=== PATIENT | female | born 1975 | race Caucasian/White ===

== ENCOUNTER 2020-04-01 14:45 | Emergency (ER) | payer OTHER, SELFPAY ==
[2020-04-01 14:48] VITALS: BP 192/93; PULSE 87; RESP 18; TEMP 36.4; O2SAT 98; BMI 45.5
[2020-04-01 15:52] LABS: Add Manual Diff / Slide Review NO; Basophils Absolute Auto 100 /uL (0-100); Basophils Percent Auto 1.3 % (0-2); Eosinophils Absolute Auto 400 /uL (0-450); Eosinophils Percent Auto 4.4 % (2-4); Hematocrit 41.7 % (36-46); Hemoglobin 13.9 g/dL (12.0-16.0); Lymphocytes Absolute Auto 3000 /uL (1100-4500); Lymphocytes Percent Auto 31.6 % (25-40); Mean Corpuscular HGB Conc 33.3 % (30-36); Mean Corpuscular Hemoglobin 25.5 PG (26-34); Mean Corpuscular Volume 76.5 fL (80-100); Monocytes Absolute Auto 700 /uL (0-900); Neutrophils Absolute Auto 5400 /uL (1500-7000); Neutrophils Percent Auto 55.7 % (50-75); Platelet Count 259 X10^3/uL (150-400); Red Blood Cell Count 5.45 X10^6/uL (4.0-5.2); Red Cell Distribution Width 15.3 % (11.6-14.8); White Blood Cell Count 9.6 X10^3/uL (4.5-11.0)
--- NOTE | 2020-04-01 15:58 | DI.CT.S_ITS ---
PROCEDURE: CT SOFT TISSUE NECK W CON INDICATIONS: possible retrophrangeal abscess TECHNIQUE: After the administration of intravenous contrast, 3.0 mm axial sections acquired from the sella to the aortic arch. Additional oblique axial 3.0 mm sections acquired through the pharynx. 3 mm thick coronal and sagittal reformats were generated. For radiation dose reduction, the following was used: automated exposure control. COMPARISON: [facility], MR, BRAIN (PITUITARY) W&WO CONTRAS, 02/18/2017, 10:03Partially empty sella. FINDINGS: Image quality: Excellent. Lymph nodes: Prominent but not threshold enlarged bilateral upper cervical lymph nodes in the anterior stations. No threshold cervical or supraclavicular lymphadenopathy. Vessels: Visualized vasculature appears patent. Neck spaces: There is no fluid collection in the retropharyngeal or parapharyngeal soft tissues. No significant edematous or inflammatory changes are visualized in the neck spaces. The oropharynx, nasopharynx, and pharynx demonstrate no mucosal lesions. The vocal cords, false vocal cords, pyriform sinuses, epiglottis, vallecula, and tongue base all appear normal. Extramucosal spaces appear unremarkable. Glands: The parotid and submandibular glands appear normal. Thyroid gland is enlarged and multinodular. Miscellaneous: Marked enlargement of the sella turcica with peripheral eyes per 2 Vickie parenchyma similar to the 02/18/2017 MRI. Limited intracranial views are otherwise within normal limits. No gross orbital abnormality. Predominantly clear paranasal sinuses and mastoid air cells. Bones: No suspicious bony lesions. Visualized sinuses and mastoids appear unremarkable. IMPRESSION: No retropharyngeal or parapharyngeal abscess. No significant inflammatory or infectious findings in the suprahyoid neck. No acute finding otherwise. Dictated by: Olegario Salazar M.D. on 04/01/2020 at 16:34 Approved by: Olegario Salazar M.D. on 04/01/2020 at 16:38
[2020-04-01 16:05] LABS: Lactate (Lactic Acid) 2.9 mmol/L (0.7-2.1)
[2020-04-01 16:06] LABS: Alanine Aminotransferase 29 IU/L (<35); Albumin 4.4 g/dL (3.5-5.0); Albumin Globulin Ratio 1.3 (1.0-2.8); Alkaline Phosphatase 116 U/L (38-126); Aspartate Aminotransferase 25 IU/L (14-36); BUN Creatinine Ratio 14.7 (6-22); Bilirubin Total 0.4 mg/dL (0.2-1.3); Blood Urea Nitrogen 10 mg/dL (7-17); Calcium 9.8 mg/dL (8.4-10.2); Carbon Dioxide 30 mmol/L (22-32); Chloride 99 mmol/L (98-107); Estimated Glomerular Filt Rate > 60.0 mL/min (>60); Globulin 3.4 g/dL (1.7-4.1); Glucose 120 mg/dL (70-100); HEMOLYSIS < 15 (0-50); Potassium 4.1 mmol/L (3.4-5.1); Sodium 139 mmol/L (137-145); Total Protein 7.8 g/dL (6.3-8.2)
[2020-04-01 17:36] VITALS: BP 162/96
[2020-04-01 17:37] VITALS: PULSE 86; O2SAT 97
[2020-04-01 17:44] LABS: Reflexed Lactate in 2 Hours Y
--- NOTE | 2020-04-01 18:01 | ED_ITS ---
HPI - Recheck/Abnormal Lab/Rx General Chief Complaint: Recheck/Abnormal Lab/Rx Stated Complaint: abnormal throat culture results/infetion Time Seen by Provider: 04/01/20 15:58 Source: patient Mode of arrival: Ambulatory Limitations: no limitations History of Present Illness HPI narrative: 44-year-old woman with acute pharyngitis diagnosed last Tuesday by her primary care physician. She was started on Augmentin. Fevers were as high as 102.8. She notes that she is feeling significantly better. 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 This particular bacterium can be associated with significant abscess formation. Patient did have fullness in the back of her throat and concern was that she was developing a retropharyngeal abscess so she was sent over to [facility] for further evaluation. Related Data Home Medications Medication Instructions Recorded Confirmed metformin 500 mg/5 mL oral solution 500 mg PO BID 05/22/19 05/22/19 omeprazole 40 mg capsule,delayed 20 mg PO QDAY #0 cap 05/22/19 05/22/19 release Previous Rx's Medication Instructions Recorded estradiol 0.05 mg/24 hr semiweekly 1 patch TRANSDERMAL 2XW #8 each 07/02/19 transdermal patch progesterone micronized 200 mg 200 mg PO BEDTIME 30 Days #30 cap 07/02/19 capsule Allergies Allergy/AdvReac Type Severity Reaction Status Date / Time No Known Drug Allergies Allergy Verified 04/01/20 14:48 Review of Systems Review of Systems Narrative: Pertinent positive and negative findings as per HPI Remainder of review of systems is otherwise unremarkable for CV: Chest pain, palpitations, dyspnea on exertion Respiratory: Cough, wheeze, dyspnea GI: Nausea, vomiting, diarrhea, change in bowel habits, black or bloody stools : Dysuria, hematuria, flank pain Patient History Surgical History Status post cholecystectomy Status post dilation and curettage (12/17/16) Family History Mother Age: 72 Diabetes mellitus Grandmother Age: 92 Hypertension Social History Smoking Status: Never smoker Smoking Status: Never smoker Substance Use Type: does not use Exam Narrative Exam Narrative: General: Healthy appearing, in no acute distress. Able to give a complete and coherent history. Well-nourished well-developed HEENT: Slight coarseness, Moist mucous membranes, normal sclera with reactive pupils, mildly erythematous posterior pharynx without significant exudate. Moderate anterior cervical adenopathy Neck: No nuchal rigidity, supple Respiratory: Lungs are clear to auscultation, no wheezing no rales no rhonchi. Full and symmetrical air movement Cardiac: Regular rate and rhythm no murmurs no bruits Abdomen: Soft nontender good bowel tones, no flank pain Skin: Warm and dry, no rashes Neurologic: Grossly neurologically intact with no obvious asymmetries or abnormalities Extremities: No trauma, well perfused Psych: Cooperative, appropriate insight and affect Initial Vital Signs Initial Vital Signs: Vital Signs Temperature 97.6 F 04/01/20 14:48 Pulse Rate 87 04/01/20 14:48 Respiratory Rate 18 04/01/20 14:48 Blood Pressure 192/93 H 04/01/20 14:48 Pulse Oximetry 98 04/01/20 14:48 Course Orders Ordered: ED Orders 04/01/20 15:35 Complete Blood Count AUTO DIFF Stat Comprehensive Metabolic Panel Stat Lactate (Lactic Acid) Stat 04/01/20 15:53 Blood Culture Stat 04/01/20 15:58 CT soft tissue neck w con Stat Vital Signs Vital signs: Vital Signs - 8 hr 04/01/20 14:48 04/01/20 17:36 04/01/20 17:37 Temperature 97.6 F Pulse Rate 87 86 Respiratory Rate 18 Blood Pressure 192/93 H 162/96 H Pulse Oximetry 98 97 MDM - Recheck/Abnormal Lab/Rx Medical Records Attestation: I reviewed the patient's medical records. Lab Data Attestation: I reviewed the patient's lab results. Result diagrams: 04/01/20 15:35 04/01/20 15:35 Labs: Lab Results 04/01/20 04/01/20 04/01/20 Range/Units 15:35 15:35 15:35 WBC 9.6 (4.5-11.0) X10^3/uL RBC 5.45 H (4.0-5.2) X10^6/uL Hgb 13.9 (12.0-16.0) g/dL Hct 41.7 (36-46) % MCV 76.5 L (80-100) fL MCH 25.5 L (26-34) PG MCHC 33.3 (30-36) % RDW 15.3 H (11.6-14.8) % Plt Count 259 (150-400) X10^3/uL Neut % (Auto) 55.7 (50-75) % Lymph % (Auto) 31.6 (25-40) % [place] % (Auto) 7.0 (3-14) % Eos % (Auto) 4.4 H (2-4) % Baso % (Auto) 1.3 (0-2) % Neut # (Auto) 5400 (1650-6160) /uL Lymph # (Auto) 3000 (0399-5900) /uL [place] # (Auto) 700 (0-900) /uL Eos # (Auto) 400 (0-450) /uL Baso # (Auto) 100 (0-100) /uL Sodium 139 (137-145) mmol/L Potassium 4.1 (3.4-5.1) mmol/L Chloride 99 (98-107) mmol/L Carbon Dioxide 30 (22-32) mmol/L BUN 10 (7-17) mg/dL Creatinine 0.68 (0.52-1.04) mg/dL Estimated GFR > 60.0 (>60) mL/min BUN/Creatinine Ratio 14.7 (6-22) Glucose 120 H (70-100) mg/dL Lactate 2.9 H (0.7-2.1) mmol/L Calcium 9.8 (8.4-10.2) mg/dL Total Bilirubin 0.4 (0.2-1.3) mg/dL AST 25 (14-36) IU/L ALT 29 (<35) IU/L Alkaline Phosphatase 116 (38-126) U/L Total Protein 7.8 (6.3-8.2) g/dL Albumin 4.4 (3.5-5.0) g/dL Globulin 3.4 (1.7-4.1) g/dL Albumin/Globulin Ratio 1.3 (1.0-2.8) Point of Care Testing Test Results Negative Urine Dip Bedside Urine Glucose Negative Bedside Urine Bilirubin - Negative Bedside Urine Ketone - Negative Urine Specific [place] 1.010 Bedside Urine Occult Blood - Negative Bedside Urine pH 8.0 Bedside Urine Protein - Negative Bedside Urine Urobilinogen - Negative Bedside Urine Nitrite - Negative Bedside Urine Leukocytes - Negative Esterase Imaging Data Soft tissue of the neck: Radiologist's Impression: FINDINGS: Image quality: Excellent. Lymph nodes: Prominent but not threshold enlarged bilateral upper cervical lymph nodes in the anterior stations. No threshold cervical or supraclavicular lymphadenopathy. Vessels: Visualized vasculature appears patent. Neck spaces: There is no fluid collection in the retropharyngeal or parapharyngeal soft tissues. No significant edematous or inflammatory changes are visualized in the neck spaces. The oropharynx, nasopharynx, and pharynx demonstrate no mucosal lesions. The vocal cords, false vocal cords, pyriform sinuses, epiglottis, vallecula, and tongue base all appear normal. Extramucosal spaces appear unremarkable. Glands: The parotid and submandibular glands appear normal. Thyroid gland is enlarged and multinodular. Miscellaneous: Marked enlargement of the sella turcica with peripheral eyes per 2 Vickie parenchyma similar to the 02/18/2017 MRI. Limited intracranial views are otherwise within normal limits. No gross orbital abnormality. Predominantly clear paranasal sinuses and mastoid air cells. Bones: No suspicious bony lesions. Visualized sinuses and mastoids appear unremarkable. IMPRESSION: No retropharyngeal or parapharyngeal abscess. No significant inflammatory or infectious findings in the suprahyoid neck. No acute finding otherwise. Dictated by: Olegario Salazar M.D. 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 She cl early is improving and responding nicely to the Augmentin will recommend full 10 days. Lactic acid is slightly elevated likely secondary to her metformin. No evidence of hypotension or tachycardia or fever to suggest developing sepsis. Patient is reassured and she is safe to return home. Discharge Plan Departure Patient Disposition: Home Clinical Impression: Pharyngitis Qualifiers: Pharyngitis/tonsillitis etiology: other specified organisms Qualified Code(s): J02.8 - Acute pharyngitis due to other specified organisms Instructions: DI for Pharyngitis/Tonsillopharyngitis -- Adult Activity Restrictions/Additional Instructions: Thank you for coming in today Your CT scan does not show a developing abscess of any sort. The Augmentin that you are currently taking seems to be working perfectly for the bacteria causing pharyngitis. Please complete the 10 day course. Your lab work is reassuring today and you are safe to go home. I hope you have a nice [place] ferry ride home Prescriptions: No Action omeprazole 40 mg capsule,delayed release(DR/EC) 20 mg PO QDAY Qty: 0 RF: 0 estradiol [Vivelle-Dot] 0.05 mg/24 hr patch semiweekly 1 patch transdermal 2XW Qty: 8 RF: 11 progesterone micronized [Prometrium] 200 mg capsule 200 mg PO BEDTIME 30 Days Qty: 30 RF: 11 metformin 500 mg/5 mL solution 500 mg PO BID RF: 0 Referrals: Danilo Hogan MD [Primary Care Provider] -
[2020-04-01 18:27] VITALS: TEMP 36.6
== END 2020-04-01 18:27 | disposition home or self-care (01) ==
PROVIDERS: Emergency Provider Emergency Medicine; Family Provider Family Medicine; PCP Family Medicine
DX: J02.8 Acute pharyngitis due to other specified organisms (principal)
CPT/HCPCS: 36415; 70491; 80053; 81003; 81025; 83605; 85025; 87040; 99284; Q9967

== ENCOUNTER → 2020-05-26 13:09 | Outpatient (CLI) | payer OTHER, SELFPAY ==
--- NOTE | 2020-05-26 | DI.RAD.S_ITS ---
PROCEDURE: FL BARIUM SWALLOW W SPEECH INDICATIONS: Dysphagia, oropharyngeal phase COMPARISON: None. TECHNIQUE: Examination was conducted in conjunction with speech pathology per standard protocol. In the lateral projection, filming was performed of the patient swallowing. AP projection filming may also be performed with patient swallowing. COMPARISON: FINDINGS: Function: The oral preparatory phase appears normal, with proper containment. The subsequent oral propulsive phase, pharyngeal phase, and esophageal phase of swallowing also appear normal with all proffered substances. No laryngotracheal penetration or aspiration. No pathologic vallecular pooling. Morphology: No cricopharyngeal bar is identified. No cervical esophageal webs. No Zenker's diverticulum. No strictures. IMPRESSION: Normal examination. Please also refer to the dedicated speech therapy swallowing evaluation report which will be independently generated. Dictated by: Saravanan Carrion M.D. on 05/26/2020 at 14:39 Approved by: Saravanan Carrion M.D. on 05/26/2020 at 14:40
--- NOTE | 2020-05-27 13:10 | ST.SWALLOW ---
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 Sloan Reason for Referral oropharyngeal dysphagia Setting Setting Outpatient Care Patient Information Identification Type Name,Date of Patient History Anna Rubio was seen for a Modified Barium Swallow Study (MBSS) at the referral of Dr. Ramiro Sloan, ENT. According to Anna, approximately 1 month ago she got an infection that effected her neck area. She reported that there was an enlarged tonsil, enlarged thyroid gland and enlarged nodes on the left side of her neck at the base of her tongue . She was placed on antibiotics and is currently on a second round of antibiotic treatment. She also reported a medical history of a pituitary tumor that was successfully removed in 2013 and a history of GERD for which she does not take medication. Anna described difficulty swallowing breads. Additionally she has difficulty swallowing her saliva requiring extra effort (i.e., swallow hard) to swallow. Her swallowing difficulty began around the time of the infection onset. When asked where she feels foods get stuck she pointed tothe middle of her neck near the thyroid cartilage. She also reported that she burps more frequently after eating and drinking since her swallow problems began. Subjective Observations Anna was seated in the fluoroscopy chair. Instructions and procedure description were provided. Anna indicated that she understood and agreed to proceed. Patient Positioning Position View Lateral Imaging Lateral View Textures Administered Trials Presented Thin Liquid via Spoon,Thin Liquid via Cup,Pudding Thick Liquid via Spoon,Regular Textures,Barium Tablet Oral Phase Source: MBSIMP (TM) (C) Bolus Specific Scoring Grid Lip Closure WFL Tongue Control During Bolus Hold WFL Bolus Prep/Mastication WFL Bolus Transport/Lingual Motion WFL A/P Lingual Propulsion Delay No Oral Residue WFL Residue Clearing WFL Nasal Regurgitation No Additional Oral Phase Observations Dentition was adequate for mastication. OME was within functional limits for strength , ROM and accuracy. Pharyngeal Phase Source: MBSIMP (TM) (C) Bolus Specific Scoring Grid Delayed Initiation of Pharyngeal Swallow Yes: premature spillage to the pyriform sinuses pre-swallow initiation Number of Seconds Delayed (seconds) ~1.0s Soft Palate Elevation Mild Impairment Tongue Base Strength/Range of Motion Moderate Impairment Residue Along the Tongue Base No Laryngeal Elevation Mild Impairment Anterior Hyoid Movement Minimal Impairment Epiglottic Range of Motion Mild Impairment Vallecular Residue Yes Clearance of Vallecular Residue Mild Impairment Laryngeal Vestibular Closure Mild Impairment Pharyngeal Stripping Wave Mild Impairment Posterior Pharyngeal Wall Residue Yes Clearance of Posterior Pharyngeal Wall Mild Impairment Residue Upper Esophageal Sphincter Opening WFL Residue in the Pyriform Sinuses Yes: residue cleares with second swallow Clearance of Residue in the Pyriform Minimal Impairment Sinuses Esophageal Clearance Upright Position WFL Pharyngoesophageal Backflow Observed No Additional Pharyngeal Phase Observations Overall, Anna presented with with a mildly delayed swallow response with premature spillage into the pyriform sinuses. Velopharyngeal seal was minimally impaired with a small amount of barium entering the velopharyngeal seal. Additionally, there appeared to be reduced laryngopharyngeal contact during swallows. Tongue base/ valecullar residue was observed consistently across trials. Hyoid excursion appeared to be mildy reduced, while the larygeal elevation was mild-moderately reduced. The epiglottis fully inverted; however the laryngeal seal was weak (flash penetration x3 ) for larger boluses and consecutive swallows from a cup. Enlarged/swollen tissue at the base of tongue was noted near the valeculla. This tissue protruded into the pharyngeal space and was observed consistently throughout the MBSS and appeared to interfere with the laryngopharyngeal contact/constriction. A/P View Esophageal Observations Esophageal Function Esophagus was not visualized below the UES. Clinical Impressions Findings Mild pharyngeal dysphagia likely related to swollen/ enlarged tissue protruding into pharynx. Her description of needing a hard swallow requiring extra effort could be explained by the enlarged tissue. It is recommended that Anna return to Dr. Sloan for follow up assessment. Patient Appropriate for Therapy No: Follow up with Dr. Sloan Recommendations Diet Comments No diet changes recommended Aspiration Precautions Recommended Precautions Alternate Liquids/Solids,Small Bites/Sips Treatment Plan Recommended Referrals ENT Consult Additional Recommended Referrals GI consult if symptoms do not resolve
== END ==
PROVIDERS: Family Provider Family Medicine; PCP Family Medicine; Referring Provider Otolaryngology; Visit Provider Otolaryngology
DX: R13.12 Dysphagia, oropharyngeal phase (principal)
CPT/HCPCS: 74230; 92611

== ENCOUNTER → 2020-06-23 08:55 | Outpatient (CLI) | payer OTHER, SELFPAY ==
--- NOTE | 2020-06-23 | DI.US.S_ITS ---
PROCEDURE: US THYROID INDICATIONS: Iodine-deficiency related diffuse (endemic) goiter TECHNIQUE: Real-time scanning was performed of the thyroid gland, with image documentation. COMPARISON: None. FINDINGS: Right: Thyroid lobe measures 5.1 x 2.2 x 1.8 cm, and is diffusely heterogeneous in echotexture. Left: Thyroid lobe measures 5.3 x 2.2 x 1.6 cm, and is diffusely heterogeneous in echotexture. 9 mm midpole calcification Isthmus: 7.0 mm thick. Nodule number: 1 Location: Right mid Size: 1.0 x 0.8 x 0.6 cm. Composition: Predominantly solid Echogenicity: Predominantly hypoechoic Shape: wider than tall. Margins: Smooth Echogenic foci: None Total points: 4 ACR TI-RADS category: Moderately suspicious Nodule number: 2 Location: Right inferior Size: 2.7 x 1.9 x 2.0 cm. Composition: Solid Echogenicity: Heterogeneous Shape: wider than tall. Margins: Ill-defined Echogenic foci: None Total points: 4 ACR TI-RADS category: Moderately suspicious Nodule number: 3 Location: Left inferior Size: 2.6 x 2.2 x 1.9 cm. Composition: Solid Echogenicity: Heterogeneous Shape: wider than tall. Margins: Ill-defined Echogenic foci: None Total points: 4 ACR TI-RADS category: Moderately suspicious IMPRESSION: Bilateral thyroid nodules as above. Recommend sonographically directed fine-needle aspiration involving the right #2 and left #3 nodules. ACR TI-RADS definitions and recommendations: TI-RADS 1 (benign): 0 points. FNA not needed. TI-RADS 2 (not suspicious): 2 points. FNA not needed. TI-RADS 3 (mildly suspicious): 3 points. * FNA if 2.5 cm or larger, follow up if 1.5 cm or larger (at 1, 3, and 5 years). TI-RADS 4 (moderately suspicious): 4-6 points. * FNA if 1.5 cm or larger, follow up if 1 cm or larger (at 1, 2, 3, and 5 years). TI-RADS 5 (highly suspicious): 7 points or more. * FNA if 1 cm or larger, follow up if 0.5 cm or larger (every year for 5 years). Dictated by: on 06/23/2020 at 11:59 Approved by: Saravanan Carrion M.D. on 06/23/2020 at 15:10
== END ==
PROVIDERS: Family Provider Family Medicine; PCP Family Medicine; Referring Provider Family Medicine; Visit Provider Family Medicine
DX: E04.9 Nontoxic goiter, unspecified (principal)
CPT/HCPCS: 76536

== ENCOUNTER → 2021-02-03 07:56 | Outpatient (CLI) | payer OTHER, SELFPAY ==
[2021-02-03 09:48] LABS: COVID19 -Nasal RAPID Negative (Negative)
[2021-02-05 23:48] LABS: QuantiFERON Mitogen Value >10.00 IU/mL (.); QuantiFERON Nil Value 0.02 IU/mL (.); QuantiFERON TB Gold Plus Negative (Negative); QuantiFERON TB1 Ag Value 0.02 IU/mL (.); QuantiFERON TB2 Ag Value 0.03 IU/mL (.)
== END ==
PROVIDERS: Family Provider Family Medicine; Visit Provider Obstetrics & Gynecology
DX: Z01.812 Encounter for preprocedural laboratory examination (principal); Z20.822 Contact with and (suspected) exposure to COVID-19
CPT/HCPCS: 86480; 87635

== ENCOUNTER 2021-02-03 09:39 | Day surgery (SDC) | payer OTHER, SELFPAY ==
[2021-01-30 13:09] VITALS: BMI 45.5
[2021-02-03] VITALS (8 sets, daily range): BP systolic 140–187; BP diastolic 74–130; PULSE 71–89; RESP 14–22; TEMP 36.2–36.8; O2SAT 94–96; BMI 45.1
--- NOTE | 2021-02-03 | PATH_ITS ---
[facility] Accession Number: [id number] . 01 Material submitted: . endometrium - ENDOMETRIAL CURETTINGS AND POLYP . 01 Clinical history: . SDC . 02 Diagnosis: Endometrial Curettings and Polyp: Patchy regions of benign, simple glandular hyperplasia (non-atypical) in a background of disordered proliferative endometrium; negative for cytologic atypia, or malignancy. Some endometrial fragments demonstrate prominent vessels, suggestive of polyp, if clinical and imaging studies are concordant. MRV 02/06/2021 1116 Local . 02 Electronically signed: . Miriam Mancini MD, Pathologist NPI- [id number] . 01 Gross description: . ENDOMETRIAL CURETTINGS AND POLYP: Received in formalin are multiple fragment(s) of adams, soft tissue measuring 2.5 x 2.5 x 0.5 cm in aggregate submitted entirely in 1 cassette(s) /LAURO 02/04/2021 0323 Local . 02 Pathologist provided ICD-10: N85.00 . 02 CPT . 484438 Performed at: 01 [facility] [address], [place], [place] [id number] MD Rakesh Welsh MD Phone: [phone] Performed at: 02 [facility] [address] [place], [place] [id number] MD Natalia Barth MD Phone: [phone]
--- NOTE | 2021-02-03 09:07 | PM.HP.1 ---
History of Present Illness History of Present Illness Date Patient Seen: 02/03/21 Time Patient Seen: 10:32 Chief complaint: SDC Narrative: Patient is a 45-year-old 2 para 2 with menorrhagia who presents for a D&C hysteroscopy due to endometrial hyperplasia Patient History Medical History (Updated 02/03/21 @ 09:55 by Natalia Live RN) ROGELIO on CPAP Thyroid cancer Surgical History (Updated 01/30/21 @ 13:17 by Karlee Jonas RN) History of nasal surgery Status post cholecystectomy Status post dilation and curettage (12/17/16) Family & Social History Family History Mother Age: 72 Diabetes mellitus Hypertension Grandmother Age: 92 Hypertension Depression Anxiety Father Loud snoring Depression Family/Other Obesity Depression Family/Other Loud snoring Anxiety Bipolar disorder Tobacco & Substance use: Smoking Status Never smoker Substance Use Type does not use Meds Home Medications and Allergies Home Medications Medication Instructions Recorded Confirmed Type estradiol 0.05 mg/24 hr semiweekly 1 patch TRANSDERMAL 2XW #8 each 07/07/20 02/03/21 Rx transdermal patch (Vivelle-Dot) progesterone micronized 200 mg 200 mg PO BEDTIME 30 Days #30 cap 07/07/20 02/03/21 Rx capsule (Prometrium) metformin 1,000 mg tablet 1,000 mg PO BID 02/03/21 02/03/21 History Allergies Allergy/AdvReac Type Severity Reaction Status Date / Time No Known Drug Allergies Allergy Verified 02/03/21 09:52 Exam Narrative Exam Narrative: HEENT: No thyromegaly, no anterior cervical or supraclavicular lymphadenopathy. Lungs:Clear to auscultation bilaterally, no wheezes. Cardiovascular: Regular rate and rhythm, no murmurs, rubs, or gallops. Abdomen: Well-healed laparoscopy scars. No hepatosplenomegaly. No masses palpable. External genitalia: Normal Vagina: Normal Cervix: Normal Bimanual exam: 7 Week size uterus. Mobile. No adnexal masses or tenderness Assessment & Plan Assessment & Plan narrative: Assessment: 45-year-old 2 para 2 with endometrial hyperplasia Plan: D&C hysteroscopy The risks, benefits, and alternatives to the procedure were explained to the patient. The risks including bleeding, infection, and uterine perforation. She understands these risks and agrees to proceed. A full par Q was held and consent form was signed. COVID-19 COVID-19 status: Negative Result date/Date tested (Pos, Neg/Pending): 02/03/21 Time Spent With Patient Time with patient: 15-24 minutes
--- NOTE | 2021-02-03 09:46 | SUR.OPER ---
Lithotomy on padded OR bed, head on pillow, arms secured on padded arm boards at <90 degrees abduction. Legs secured in padded yellow fins stirrups.
[2021-02-03] MEDS: LACTATED RINGERS 1,000 ML 100 ML IV (10:04)
--- NOTE | 2021-02-03 11:17 | PM.GYNOP.1 ---
Operative Date/Time/Diagnoses Date of procedure: 02/03/21 Time of procedure: 11:17 Pre-op diagnosis: Endometrial hyperplasia Post-op diagnosis: same Procedure & Clinicians Procedure: Procedures Operation Date: 02/03/21 10:15 Actual Procedure Side Surgeon p D&C Hysteroscopy Removal Uterine Polyp Sandra Quick MD Indications: Endometrial hyperplasia Surgeon: Sandra Quick Anesthesia Type: General (LMA) Operative Notes Findings: 8 week size anteverted uterus Both fallopian tube ostia observed Several polyps on the posterior wall of the uterus Thickened endometrial lining Closure Type: not applicable Specimen(s): endometrial curettings and endometrial polyp Estimated blood loss (mL): 10 Blood products transfused: none Procedure in detail: After informed consent was obtained, the patient was taken to the operating room where she was placed in the dorsal supine position. After adequate LMA general anesthesia was achieved, a bivalve speculum was placed into the vagina. A single-tooth tenaculum was placed on the anterior lip of the cervix. The cervical os was sequentially dilated to the # 8 Hegar dilator. The hysteroscope passed easily into the endometrial cavity. Both fallopian tube ostia were observed. There were several polyps scattered throughout the posterior endometrium. The hysteroscope was removed. The cervical os was further dilated to the # 10 Hegar dilator. The resectoscope passed easily into the endometrial cavity. Using the loop, with settings at 80 cut and 60 cautery, several polyps were resected in pieces. The resectoscope was removed from the uterus. Polyp forceps were used to remove the resected pieces of polyp. The hysteroscope was passed back into the endometrial cavity. There was some thickened endometrium but no more polyps observed. The hysteroscope was removed. Sharp curettage was performed yielding a moderate amount of endometrial curettings. The instruments were removed from the uterus. The single-tooth tenaculum was removed from the anterior lip of the cervix. The bivalve speculum was removed from the vagina. Sponge, lap, and instrument counts were correct x2. The patient tolerated the procedure well, and was taken to PACU in stable condition. Complications: none Post-operative Condition: stable Disposition: PACU Plan for aftercare: Home after recovery
[2021-02-03] MEDS: OXYCODONE/ACETAMINOPHEN 5/325 TABLET 1 TAB PO (11:42)
--- NOTE | 2021-02-03 11:49 | SUR.PHASEI ---
Stable PACU stay, BP normal range with new large cuff used, Dr. Ramirez aware. No nausea, cramping pain rated 4/10 pt medicated with percocet after ate some applesauce.
== END 2021-02-03 12:24 | disposition home or self-care (01) ==
PROVIDERS: Family Provider Family Medicine; PCP Family Medicine; Referring Provider Obstetrics & Gynecology; Visit Provider Obstetrics & Gynecology
PROC: 0UDB8ZZ Extraction of Endometrium, Via Natural or Artificial Opening Endoscopic (ICD-10-PCS; CPT 58558; principal; 2021-02-03 10:15)
DX: N85.01 Benign endometrial hyperplasia (principal); N92.0 Excessive and frequent menstruation with regular cycle; E11.9 Type 2 diabetes mellitus without complications; G47.33 Obstructive sleep apnea (adult) (pediatric); E03.9 Hypothyroidism, unspecified; Z20.822 Contact with and (suspected) exposure to COVID-19; Z85.850 Personal history of malignant neoplasm of thyroid; Z79.84 Long term (current) use of oral hypoglycemic drugs
CPT/HCPCS: 58558; 82962; 86480; 87635; J1100; J2250; J2405; J2765; J3010

== ENCOUNTER → 2021-09-04 09:26 | Outpatient (CLI) | payer OTHER, SELFPAY ==
[2021-09-04 20:20] LABS: COVID19 - ORCAS (NP or Nasal) Negative (Negative)
== END ==
PROVIDERS: Family Provider Family Medicine; PCP Family Medicine; Visit Provider Physician Assistant Medical
DX: Z01.812 Encounter for preprocedural laboratory examination (principal)
CPT/HCPCS: U0003

== ENCOUNTER → 2021-11-20 11:37 | Outpatient (CLI) | payer OTHER, SELFPAY ==
[2021-11-20 20:24] LABS: COVID19 - ORCAS (NP or Nasal) POSITIVE (Negative)
== END ==
PROVIDERS: Family Provider Family Medicine; PCP Family Medicine; Visit Provider Physician Assistant
DX: U07.1 COVID-19 (principal); Z01.812 Encounter for preprocedural laboratory examination; Z20.822 Contact with and (suspected) exposure to COVID-19
CPT/HCPCS: U0003

== ENCOUNTER → 2022-06-09 11:48 | Outpatient (CLI) | payer OTHER, SELFPAY ==
--- NOTE | 2022-06-09 11:49 | DI.MG.S_ITS ---
BILATERAL DIGITAL SCREENING MAMMOGRAM 3D/2D WITH CAD: 06/09/2022 CLINICAL: Routine screening. Family history of breast cancer. Comparison is made to exam dated: 02/20/2016 mammogram - [facility]. Both breasts are almost entirely fatty (category a/<25% glandular tissue). Current study was also evaluated with a Computer Aided Detection (CAD) system. No significant masses, calcifications, or other findings are seen in either breast. There has been no significant interval change. IMPRESSION: NEGATIVE There is no mammographic evidence of malignancy. A 1 year screening mammogram is recommended. Based on the Tyrer Cuzick model (a risk assessment model) the patient's lifetime risk is 5.5% and her 10 year risk is 1.4%. According to the ACR, ACS, and NCCN guidelines, an annual breast MRI exam along with mammogram is recommended if the patient's lifetime risk is 20% or greater. This exam was interpreted at Station ID: [id number]. NOTE: For mammograms, a report in lay terms will be sent to the patient. Approximately 15% of breast malignancies will not be visualized mammographically. In the management of a palpable breast mass, a negative mammogram must not discourage biopsy of a clinically suspicious lesion. Electronically Signed By: Ashley carpenter/saúl:06/09/2022 16:54:07 copy to: [facility] [place] letter sent: Normal Exam ACR BI-RADS Category 1: Negative [id number]
== END ==
PROVIDERS: Family Provider Family Medicine; PCP Family Medicine; Referring Provider Obstetrics & Gynecology; Visit Provider Obstetrics & Gynecology
DX: Z12.31 Encounter for screening mammogram for malignant neoplasm of breast (principal); Z80.3 Family history of malignant neoplasm of breast
CPT/HCPCS: 77063; 77067

== ENCOUNTER → 2024-11-21 09:07 | Outpatient (CLI) | payer OTHER, SELFPAY ==
--- NOTE | 2024-11-21 09:09 | DI.MG.S_ITS ---
MM screening mammo BI: 11/21/2024. BI-RADS: 1 CLINICAL: 49-year old female for bilateral screening mammogram. Tyrer-Cuzick lifetime risk of 7.6%. No personal or first-degree family history of breast cancer. Current reported family history of breast cancer: paternal grandmother. PRIOR EXAMS 06/09/2022, 02/20/2016. MAMMOGRAPHY TECHNIQUE: 2D and 3D (tomosynthesis) digital mammographic views obtained, with additional images as needed for full coverage. Current study was also evaluated with a Computer Aided Detection (CAD) system. DENSITY B. There are scattered areas of fibroglandular density. MAMMOGRAPHY FINDINGS Bilateral: No suspicious mass, asymmetry, microcalcification, or other abnormality seen. No significant change from comparison. IMPRESSION: * No evidence of malignancy. RECOMMENDATIONS Bilateral * Annual screening mammography. OVERALL ASSESSMENT CATEGORY BI-RADS-1: Negative. The [employer] recommends annual screening mammography beginning at age 40 for women with average risk of breast cancer. ELECTRONICALLY SIGNED: Varsha Wells M.D. on 11/21/2024 at 11:24:18 AM PT Interpreting Station ID: [id number]
== END ==
LOC: MAMMO 09:08
PROVIDERS: Family Provider Family Medicine; PCP Family Medicine; Referring Provider Family Medicine; Visit Provider Family Medicine
DX: Z12.31 Encounter for screening mammogram for malignant neoplasm of breast (principal); Z80.3 Family history of malignant neoplasm of breast
CPT/HCPCS: 77063; 77067